=== PATIENT | male | born 1960 | race Caucasian/White ===

== ENCOUNTER → 2018-02-01 | Outpatient (CLI) | payer OTHER ==
--- NOTE | 2018-02-01 15:42 | RAD ---
Lumbar spine, 3 views, 02/01/2018: History: Low back pain The lumbar vertebral heights are well-maintained. There are moderate scattered marginal spurs. There are mild degenerative changes involving scattered facet joints. A slight retrolisthesis at L1-2 is probably due to facet joint arthropathy. No fracture is identified. The paraspinous soft tissues are unremarkable. IMPRESSION: 1. Mild to moderate scattered degenerative changes as instructed above. 2. No acute bony abnormality is detected.
== END | disposition home or self-care (01) ==
LOC: DXRAD 13:20
PROVIDERS: ATTEND Neuromusculoskeletal Medicine, Sports Medicine
DX: M47.896 Other spondylosis, lumbar region (principal)
CPT/HCPCS: 72100